=== PATIENT | male | born 1990 | race American Indian/Alaskan Native ===

== ENCOUNTER 2019-08-15 19:32 | Emergency (ER) | payer SELFPAY ==
[2019-08-15 19:37] VITALS: BP 114/74
--- NOTE | 2019-08-15 19:56 | Emergency Department Report ---
Chief Complaint: Headache Stated Complaint: FLU/STOMACH PAIN Time Seen by Provider: 08/15/19 19:52 - HPI History of Present Illness: This is a 28-year-old male nontoxic well in appearance with no signs of distress presents to the ED with complaint of chills, myalgia, and congestion for several days. Patient denies any drooling or hoarseness. Denies any fever, headache, nausea, vomiting, chest pain or SOB. Denies any other complaints. - ROS Review of Systems: Review of Systems: ROS: Stated complaint: chills, myalgia, and congestion Other details as noted in HPI Comment: All other systems reviewed and negative Constitutional: Congestion and chills. denies: fever Respiratory: denies: cough, shortness of breath. Cardiovascular: denies: chest pain Gastrointestinal: denies: nausea, vomiting Musculoskeletal: myalgia - Exam Vital Signs: Vital Signs 08/15/19 19:35 Temperature 98.6 F Pulse Rate 93 H Respiratory 18 Rate Blood Pressure 114/74 O2 Sat by Pulse 99 Oximetry Physical Exam: - General Limitations: No Limitations General appearance: alert, in no apparent distress Eye exam: Present: normal appearance, EOMI ENT exam: Present: turbinates congested with clear discharge, uvula midline, no peritonsular swelling or exudate, mucous membranes moist, no tenderness on percussion of sinuses Neck exam: Present: normal inspection Respiratory exam: Present: normal lung sounds bilaterally. Absent: respiratory distress, wheezes, rales, rhonchi, stridor Cardiovascular Exam: Present: regular rate, normal rhythm GI/Abdominal exam: Present: soft. Absent: distended, tenderness Extremities exam: Present: normal inspection. Absent: pedal edema, calf tenderness Neurological exam: Present: alert, oriented X3 Psychiatric exam: Present: normal affect, normal mood Skin exam: Present: warm, dry, intact, normal color MSE screening note: Focused history and physical exam performed. Due to findings the following was ordered: ED Medical Decision Making - Medical Decision Making This is a 28-year-old male that presents with URI symptoms. Patient is stable was examined by me. She is in no acute distress. Vitals are normal. Congestion with clear discharge on exam. This appear to be a upper respiratory infection. Patient given lis of OTC medication to try. Follow-up with a primary care doctor in 3-5 days or if symptoms worsen and continue return to emergency room as soon as possible. At time of discharge, the patient does not seem toxic or ill in appearance. No acute signs of distress noted. Patient agrees to discharge treatment plan of care. No further questions noted by the patient. ED Disposition for MSE Disposition: MED SCREENING EXAM-LEFT Is pt being admited?: No Condition: Stable Instructions: Upper Respiratory Infection (ED) Additional Instructions: Take OTC Robitussin, flonase, imodium, and zyrtec for symptom relief. Follow-up with a primary care doctor in 3-5 days or if symptoms worsen and continue return to the emergency department as soon as possible. Referrals: [facility] [Outside] - 3-5 Days [facility] [Outside] - 3-5 Days [facility] [Outside] - 3-5 Days Time of Disposition: 19:56
== END 2019-08-15 21:11 | disposition left against medical advice (07) ==
LOC: ED 19:32
DX: M79.10 Myalgia, unspecified site (principal); R09.81 Nasal congestion
CPT/HCPCS: 99282